=== PATIENT | female | born 1940 | race Caucasian/White ===

== ENCOUNTER 2016-07-23 13:54 | Day surgery (SDC) | payer MEDICARE, BC ==
--- NOTE | ~2016-07-23 | EGD ---
EGD REPORT [facility] [address] [place]. [address] NAME: SHELBY MAR : [birth year] STATUS : REG [facility]#: [id number] AGE: 75 ADM/REG DATE : 07/23/16 MR#: [id number] REPORT SERV DATE: 07/23/16 DICTATED BY: ESTRELLA LIND DATE: 07/23/16 REPORT STATUS : Draft TRANSCRIBED BY: [facility] DATE: 07/23/16 Endoscopy Center Patient Name: Shelby Mar Date of : 1940 Attending MD: YOLI LIND MD Procedure Date No Time: 07/23/2016 Procedure: Upper GI endoscopy Indications: Iron deficiency anemia, Melena Referring MD: ASHLEY MCKEON Medicines: See the Anesthesia note for documentation of the administered medications Complications: No immediate complications. Estimated blood loss: Minimal. Procedure: Pre-Anesthesia Assessment: - ASA Grade Assessment: II - A patient with mild systemic disease. - Prior to the procedure, a History and Physical was performed, and patient medications and allergies were reviewed. The patient's tolerance of previous anesthesia was also reviewed. The risks and benefits of the procedure and the sedation options and risks were discussed with the patient. All questions were answered, and informed consent was obtained. Prior Anticoagulants: The patient has taken no previous anticoagulant or antiplatelet agents. After reviewing the risks and benefits, the patient was deemed in satisfactory condition to undergo the procedure. After obtaining informed consent, the endoscope was passed under direct vision. Throughout the procedure, the patient's blood pressure, pulse, and oxygen saturations were monitored continuously. The GIF [id number] was introduced through the mouth, and advanced to the third part of duodenum. The upper GI endoscopy was accomplished without difficulty. The patient tolerated the procedure well. Findings: The examined duodenum was normal. Diffuse moderate inflammation characterized by congestion (edema) and erythema was found in the gastric antrum. Biopsies were taken with a cold forceps for histology. A 5 cm hiatus hernia was present. 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 The maximum longitudinal extent of EGD REPORT [address] [address] NAME: SHELBY MAR : [birth year] STATUS : [place] [facility] [place] PAT#: [id number] AGE: 75 ADM/REG DATE : 07/23/16 MR#: [id number] REPORT SERV DATE: 07/23/16 DICTATED BY: ESTRELLA LIND DATE: 07/23/16 REPORT STATUS : Draft TRANSCRIBED BY: [facility] DATE: 07/23/16 these mucosal changes was 9 cm in length. Mucosa was biopsied with a cold forceps for histology in 4 quadrants at intervals of 2 cm. A total of 5 specimen bottles were sent to pathology. Impression: - Normal examined duodenum. - Gastritis. Biopsied. - Hiatus hernia. 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 Biopsied. Recommendation: - Patient has a contact number available for emergencies. The signs and symptoms of potential delayed complications were discussed with the patient. Return to normal activities tomorrow. Written discharge instructions were provided to the patient. - Regular diet. - Discharge patient to home. - Continue present medications. - Await pathology results. - Return to my office in 6 weeks. Procedure Code(s): --- Professional --- 91017, Esophagogastroduodenoscopy, flexible, transoral; with biopsy, single or multiple Diagnosis Code(s): --- Professional --- K22.9, Disease of esophagus, unspecified K29.70, Gastritis, unspecified, without bleeding K44.9, Diaphragmatic hernia without obstruction or gangrene D50.9, Iron deficiency anemia, unspecified K92.1, Melena CPT copyright 2013 [employer]. All rights reserved. The codes documented in this report are preliminary and upon protector plate attacher review may be revised to meet current compliance requirements. YOLI LIND MD 07/23/2016 5:28 PM This report has been signed electronically. Number of Addenda: 0 Note Initiated On: 07/23/2016 4:13 PM Scope Withdrawal Time 0 hours 0 minutes 0 seconds EGD REPORT [place] [id number] [address] NAME: SHELBY MAR : [birth year] STATUS : [place] [facility] [place] PAT#: [id number] AGE: 75 ADM/REG DATE : 07/23/16 MR#: [id number] REPORT SERV DATE: 07/23/16 DICTATED BY: ESTRELLA LIND DATE: 07/23/16 REPORT STATUS : Draft TRANSCRIBED BY: [employer] [facility] DATE: 07/23/16 [place] [id number]
[~2016-07-23 13:54] MED LIST: ASAB PO; ATACAND8 MG PO; BIOTIN PO; BIST PO; BONIVA150 MG PO; CO Q-10100 MG PO; DULCOLAX PO; GLUCOPHAGE1000 MG PO; JANUVIA100 MG PO; KLOR-CON 88 MEQ PO; L40 PO; LIBRAX PO; LUNESTA3 MG PO; OS500+D PO; PRAVACHOL40 MG PO; PRILOSEC40 MG PO; RANITIDINE300 MG PO; RESTASIS OPH; SINGULAIR1 PO; SODIUM CHLORIDE; STARLIX120 PO; SYMBICORT INH; T PO; VENTOLIN INH; VITAMIN B-122500 MCG SL; VITAMIN D1000 UNI1 PO; VITAMIN D31000 UNIT PO; ZETIA PO; ZOL100 PO
== END 2016-07-23 23:59 | disposition home or self-care (01) ==
LOC: DMU 13:54
PROVIDERS: Internal Medicine Gastroenterology
PROC: 0DB28ZX Excision of Middle Esophagus, Via Natural or Artificial Opening Endoscopic, Diagnostic (ICD-10-PCS; 2016-07-23)
PROC: 0DB18ZX Excision of Upper Esophagus, Via Natural or Artificial Opening Endoscopic, Diagnostic (ICD-10-PCS; 2016-07-23)
PROC: 0DB68ZX Excision of Stomach, Via Natural or Artificial Opening Endoscopic, Diagnostic (ICD-10-PCS; principal; 2016-07-23 15:30)
DX: K92.1 Melena (principal); D50.9 Iron deficiency anemia, unspecified; K44.9 Diaphragmatic hernia without obstruction or gangrene; E11.9 Type 2 diabetes mellitus without complications; J45.909 Unspecified asthma, uncomplicated; E78.00 Pure hypercholesterolemia, unspecified; M06.9 Rheumatoid arthritis, unspecified; M81.0 Age-related osteoporosis without current pathological fracture; K21.9 Gastro-esophageal reflux disease without esophagitis; I10 Essential (primary) hypertension; Z79.52 Long term (current) use of systemic steroids; Z79.899 Other long term (current) drug therapy; Z98.41 Cataract extraction status, right eye; Z98.42 Cataract extraction status, left eye; Z90.710 Acquired absence of both cervix and uterus; Z98.890 Other specified postprocedural states; Z90.49 Acquired absence of other specified parts of digestive tract
CPT/HCPCS: 82962; 88305